=== PATIENT | male | born 1990 | race Caucasian/White ===

== ENCOUNTER 2018-11-03 17:53 | Emergency (ER) | payer SELFPAY ==
[2018-11-03] MEDS ORDERED: TETANUS/DIPHTHERIA/PERTUSSIS 0.5 ML SYRINGE IM ONE (19:15)
--- NOTE | 2018-11-03 19:52 | XRAY Report ---
Reason: Nail to 2nd digit Procedure Date: 11/03/2018 Accession Number: [id number] / [id number] Procedure: XR - Finger(s) LT CPT Code: FULL RESULT: EXAM: LEFT SECOND DIGIT RADIOGRAPHY EXAM DATE: 11/03/2018 07:21 PM. CLINICAL HISTORY: Left finger pain. COMPARISON: None. TECHNIQUE: 3 views. FINDINGS: Bones: No fracture. Nail is seen traversing through the distal phalanx of the second finger. No fracture is identified. Joints: Normal. No subluxations. Soft Tissues: Normal. No soft tissue swelling. IMPRESSION: Metallic nail extending through the distal phalanx of the second finger. No fracture. RADIA
[2018-11-03] MEDS ORDERED: LIDOCAINE 2% 10 ML MDV SUBQ STA (19:54)
--- NOTE | 2018-11-03 19:54 | ED Physician Documentation ---
PD HPI UPPER EXT INJURY - Stated complaint Stated Complaint: FINGER INJURY - Chief complaint Chief Complaint: General - History obtained from History obtained from: Patient - History of Present Illness Location: Left, Finger (index) Type of injury: Foreign body (he says the piece of frame moulding he was anchoring slid a bit and the finish nail from nailgun deflected and went through his finger. it is firmly in, so he feels it likely went through the bone.) Review of Systems Neurologic: denies: Focal weakness, Numbness, Near syncope PD PAST MEDICAL HISTORY - Past Medical History Cardiovascular: None Endocrine/Autoimmune: None - Present Medications Home Medications: Ambulatory Orders Medication Instructions Recorded Confirmed No Known Home Medications 11/03/18 11/03/18 - Allergies Allergies/Adverse Reactions: Allergies Allergy/AdvReac Type Severity Reaction Status Date / Time Sulfa (Sulfonamide Allergy Rash Verified 11/03/18 18:00 Antibiotics) PD ED PE NORMAL - Vitals Vital signs reviewed: Yes - General General: Alert and oriented X 3, No acute distress, Well developed/nourished - Derm Derm: Normal color, Warm and dry - Extremities Extremities: Other (left index finger distal phalanx with finish nail sticking out tip of dorsum and extends to volar (all the way through and still present foreign body).) - Neuro Neuro: No motor deficit, No sensory deficit Results - Vitals Vitals: Oxygen O2 Source Room air - Rads (name of study) left index finger Radiology: Prelim report reviewed (small bred-type nail in tip of finger, firmly held so c/w through the bone, which is what it appears on xray) Procedures - FB removal FB location: Other (finger tip through the distal phalanx) FB removal preparation: Regional block-specify (digital block left index finger) Removal method: Foreceps (and pliers) FB removal aftercare: No complications, Patient tolerated well, Removed successfully PD MEDICAL DECISION MAKING - ED course Complexity details: reviewed results, d/w patient Departure - Departure Disposition: 01 Home, Self Care Clinical Impression: Foreign body finger Condition: Stable Record reviewed to determine appropriate education?: Yes Instructions: ED Foreign Body Soft Tissue Removed Comments: Soak the finger in warm water 2-3 times a day to help reduce chance of infection. Use some antibiotic ointment. Regular bandaging. Regular use of the finger is okay based on comfort. Recheck if signs of infection. Tylenol or ibuprofen if needed for pains. Discharge Date/Time: 11/03/18 20:38
[2018-11-03 20:33] VITALS: BP 137/85
== END 2018-11-03 20:38 | disposition home or self-care (01) ==
LOC: ED 17:53
DX: S60.451A Superficial foreign body of left index finger, initial encounter (principal); W29.4XXA Contact with nail gun, initial encounter; Z23 Encounter for immunization
CPT/HCPCS: 73140; 90471; 99283